=== PATIENT | female | born 1945 | race Caucasian/White ===

== ENCOUNTER 2016-07-28 10:09 | Outpatient (CLI) | payer MEDICARE, OTHER ==
[2012-10-25 23:26] VITALS: BP 170/60
== END 2016-07-28 10:10 ==
LOC: POD 10:09
PROVIDERS: ATTEND Podiatrist Public Medicine
DX: E11.9 Type 2 diabetes mellitus without complications (principal); B35.1 Tinea unguium; L84 Corns and callosities; L60.0 Ingrowing nail; M79.674 Pain in right toe(s); M79.675 Pain in left toe(s)
CPT/HCPCS: 11721; G0463

== ENCOUNTER 2016-11-03 08:42 | Outpatient (CLI) | payer MEDICARE, OTHER ==
[2012-10-25 23:26] VITALS: BP 170/60
== END 2016-11-03 08:43 ==
LOC: POD 08:42
PROVIDERS: ATTEND Podiatrist Public Medicine
DX: B35.1 Tinea unguium (principal); E11.9 Type 2 diabetes mellitus without complications; L84 Corns and callosities; L60.0 Ingrowing nail; M79.674 Pain in right toe(s); M79.675 Pain in left toe(s)
CPT/HCPCS: 10061; 11721; G0463

== ENCOUNTER 2017-01-12 11:14 | Outpatient (CLI) | payer MEDICARE, OTHER ==
[2012-10-25 23:26] VITALS: BP 170/60
== END 2017-01-12 11:15 ==
LOC: POD 11:14
PROVIDERS: ATTEND Podiatrist Public Medicine
DX: B35.1 Tinea unguium (principal); L84 Corns and callosities; L60.0 Ingrowing nail; M79.675 Pain in left toe(s); M79.674 Pain in right toe(s); E11.9 Type 2 diabetes mellitus without complications
CPT/HCPCS: 11721; G0463

== ENCOUNTER 2017-03-16 10:31 | Outpatient (CLI) | payer MEDICARE, OTHER ==
[2012-10-25 23:26] VITALS: BP 170/60
== END 2017-03-16 10:40 ==
LOC: POD 10:31
PROVIDERS: ATTEND Podiatrist Public Medicine
DX: B35.1 Tinea unguium (principal); L60.0 Ingrowing nail; L84 Corns and callosities; E11.9 Type 2 diabetes mellitus without complications; M79.674 Pain in right toe(s); M79.675 Pain in left toe(s)
CPT/HCPCS: 11056; 11721

== ENCOUNTER 2017-07-06 09:29 | Outpatient (CLI) | payer MEDICARE, OTHER ==
[2012-10-25 23:26] VITALS: BP 170/60
== END 2017-07-06 09:30 ==
LOC: POD 09:29
PROVIDERS: ATTEND Podiatrist Public Medicine
DX: E11.9 Type 2 diabetes mellitus without complications (principal); B35.1 Tinea unguium; L84 Corns and callosities; L60.0 Ingrowing nail; M79.674 Pain in right toe(s); M79.675 Pain in left toe(s)
CPT/HCPCS: 11721; G0463

== ENCOUNTER 2017-09-14 11:04 | Outpatient (CLI) | payer MEDICARE, OTHER ==
[2012-10-25 23:26] VITALS: BP 170/60
== END 2017-09-14 11:05 ==
LOC: POD 11:04
PROVIDERS: ATTEND Podiatrist Public Medicine
DX: E11.9 Type 2 diabetes mellitus without complications (principal); B35.1 Tinea unguium; L84 Corns and callosities; L60.0 Ingrowing nail; M79.674 Pain in right toe(s); M79.675 Pain in left toe(s)
CPT/HCPCS: 11721; G0463

== ENCOUNTER 2017-11-16 10:32 | Outpatient (CLI) | payer MEDICARE, OTHER ==
[2012-10-25 23:26] VITALS: BP 170/60
== END 2017-11-16 10:33 ==
LOC: POD 10:32
PROVIDERS: ATTEND Podiatrist Public Medicine
DX: E11.9 Type 2 diabetes mellitus without complications (principal); B35.1 Tinea unguium; L84 Corns and callosities; L60.0 Ingrowing nail; M79.674 Pain in right toe(s); M79.675 Pain in left toe(s)
CPT/HCPCS: 11721; G0463